=== PATIENT | female | born 1940 | race Caucasian/White ===

== ENCOUNTER 2017-12-25 17:06 | Emergency (ER) | payer MEDICARE, BC ==
[~2017-12-25] VITALS: Ht 170.2 cm; Wt 59.1 kg
[~2017-12-25 17:06] MED LIST: ASPI-1071 PO; ATOR80TA PO; CARV-50 PO; DONE5TAB7 PO; EZET10TA14 PO; FAMO20TA8 PO; FLUO20CA39 PO; GLIM4TAB79 PO; METF10002 PO; METF500T PO; MULT-1085 PO; MULT-271 PO
[2017-12-25 18:03] LABS: BASOPHILS # (AUTO) 0.1 X10'3 (0-0.2); BASOPHILS % (AUTO) 0.9 % (0-1); EOSINOPHILS # (AUTO) 0.4 X10'3 (0-0.9); EOSINOPHILS % (AUTO) 4.8 % (0-6); HEMATOCRIT 34.7 % (35.0-45.0); HEMOGLOBIN 11.5 g/dl (12.0-16.0); LYMPHOCYTES # (AUTO) 1.1 X10'3 (1.1-4.8); LYMPHOCYTES % (AUTO) 12.2 % (21-51); MEAN CORPUSCULAR HEMOGLOBIN 29.6 PG (27.0-31.0); MEAN CORPUSCULAR HGB CONC 33.2 % (33.0-36.5); MEAN CORPUSCULAR VOLUME 89.2 FL (78-98); MEAN PLATELET VOLUME 10.6 FL (7.4-10.4); MONOCYTES # (AUTO) 0.6 X10'3 (0-0.9); MONOCYTES % (AUTO) 6.7 % (2-12); NEUTROPHILS # (AUTO) 6.8 X10'3 (1.8-7.7); NEUTROPHILS % (AUTO) 75.4 % (42-75); PLATELET COUNT 223 X10'3 (140-440); RED BLOOD COUNT 3.89 X10'6 (4.20-5.60); WHITE BLOOD COUNT 9.1 X10'3 (4.5-11.0)
[2017-12-25 18:08] LABS: CLARITY,URINE CLOUDY (Clear); COLOR,URINE YELLOW (Yellow); GLUCOSE, URINE NEGATIVE (Neg); KETONES,URINE TRACE mg/dl (Neg); LEUKOCYTE ESTERASE ,URINE SMALL (Neg); NITRITES, URINE POSITIVE (Neg); OCCULT BLOOD,URINE MODERATE (Neg); PH,URINE 5.5 (4.8-8.0); PROTEIN,URINE NEGATIVE (Neg); UROBILINOGEN,URINE 0.2 E.U/dL (0.2-1.0)
[2017-12-25 18:11] LABS: INR 1.1 INR; PROTHROMBIN TIME 11.2 SECONDS (9.0-12.0)
[2017-12-25 18:12] LABS: UA COLLECTION TYPE STRAIGHT CATH
[2017-12-25 18:16] LABS: BACTERIA,URINE 4+ /HPF (Neg); MUCUS STRANDS NONE SEEN /LPF (Neg); RENAL CELLS, URINE FEW /HPF; SQUAMOUS EPITHELIAL CELL,UR FEW /LPF (FEW); TRANSITIONAL EPI CELLS,URINE FEW /HPF; WBC CLUMPS,URINE MANY /HPF (NEGATIVE); WBC,URINE 30-50 /HPF (0-4)
[2017-12-25 18:18] LABS: ALANINE AMINOTRANSFERASE 38 U/L (12-78); ALBUMIN 3.5 G/DL (3.4-5.0); ALKALINE PHOSPHATASE 57 IU/L (46-116); ANION GAP 10 (8-16); ASPARTATE AMINO TRANSFERASE 26 U/L (10-37); BILIRUBIN,TOTAL 0.4 MG/DL (0.1-1.0); BLOOD UREA NITROGEN 26 MG/DL (7-18); BUN/CREATININE RATIO 23.2 (6.6-38.0); CALCIUM 9.3 MG/DL (8.5-10.1); CHLORIDE 104 MMOL/L (99-107); CREATININE 1.12 MG/DL (0.40-0.90); GLUCOSE 200 MG/DL (70-104); SODIUM 142 MMOL/L (135-145); TOTAL CARBON DIOXIDE 27.7 MMOL/L (24-32); TOTAL PROTEIN 7.1 G/DL (6.4-8.2); eGFR 47 ML/MIN
[2017-12-25 18:20] LABS: POTASSIUM 4.2 MMOL/L (3.5-5.1)
[2017-12-25 18:34] LABS: PLATELET ESTIMATE NORMAL
[2017-12-25 18:35] LABS: ACANTHOCYTES 2+; ANISOCYTOSIS 1+; POIKILOCYTOSIS 1+
[2017-12-25] MEDS ORDERED: cephalexin 250mg capsule PO ONE (18:35)
[2017-12-25] MEDS ORDERED: levoFLOXACIN 250mg tablet PO ONE (18:45)
[2017-12-25] MEDS ORDERED: LEVO500T2 PO (18:58)
[2017-12-25] MEDS ORDERED: LORazepam 2 mg/ml vial IV ONE (19:00)
[2017-12-25 19:12] VITALS: BP 138/68
== END 2017-12-25 19:42 | disposition home or self-care (01) ==
LOC: ER 17:06
DX: F03.90 Unspecified dementia, unspecified severity, without behavioral disturbance, psychotic disturbance, mood disturbance, and anxiety (principal); G93.40 Encephalopathy, unspecified; N39.0 Urinary tract infection, site not specified; M16.0 Bilateral primary osteoarthritis of hip; I48.91 Unspecified atrial fibrillation; E11.9 Type 2 diabetes mellitus without complications; I10 Essential (primary) hypertension; Z90.49 Acquired absence of other specified parts of digestive tract; Z88.0 Allergy status to penicillin; Z88.2 Allergy status to sulfonamides; Z88.8 Allergy status to other drugs, medicaments and biological substances; Z79.84 Long term (current) use of oral hypoglycemic drugs; Z79.82 Long term (current) use of aspirin; Z79.899 Other long term (current) drug therapy; Z60.2 Problems related to living alone
CPT/HCPCS: 36415; 70450; 72170; 72192; 80053; 81001; 82948; 85025; 85610; 87077; 87088; 87186; 93005; 99285

== ENCOUNTER 2018-01-03 21:08 | Emergency (ER) | payer MEDICARE, BC ==
[~2018-01-03] VITALS: Ht 160 cm; Wt 72.0 kg
[2018-01-03 22:02] VITALS: BP 116/63
[2018-01-03 22:03] LABS: BASOPHILS % (AUTO) 0.2 % (0-1); EOSINOPHILS # (AUTO) 0.8 X10'3 (0-0.9); EOSINOPHILS % (AUTO) 7.2 % (0-6); HEMATOCRIT 34.5 % (35.0-45.0); HEMOGLOBIN 11.5 g/dl (12.0-16.0); MEAN CORPUSCULAR HEMOGLOBIN 29.6 PG (27.0-31.0); MEAN CORPUSCULAR HGB CONC 33.3 % (33.0-36.5); MEAN CORPUSCULAR VOLUME 88.9 FL (78-98); MEAN PLATELET VOLUME 10.4 FL (7.4-10.4); MONOCYTES # (AUTO) 0.9 X10'3 (0-0.9); MONOCYTES % (AUTO) 7.8 % (2-12); NEUTROPHILS # (AUTO) 7.3 X10'3 (1.8-7.7); NEUTROPHILS % (AUTO) 66.8 % (42-75); PLATELET COUNT 251 X10'3 (140-440); RED BLOOD COUNT 3.88 X10'6 (4.20-5.60); RED CELL DISTRIBUTION WIDTH 16.1 % (11.5-14.5); WHITE BLOOD COUNT 10.9 X10'3 (4.5-11.0)
[2018-01-03 22:20] LABS: ALANINE AMINOTRANSFERASE 22 U/L (12-78); ALBUMIN 3.1 G/DL (3.4-5.0); ALBUMIN/GLOBULIN RATIO 0.9 (1.1-1.5); ALKALINE PHOSPHATASE 62 IU/L (46-116); ANION GAP 12 (8-16); ASPARTATE AMINO TRANSFERASE 16 U/L (10-37); BILIRUBIN,TOTAL 0.5 MG/DL (0.1-1.0); BLOOD UREA NITROGEN 20 MG/DL (7-18); BUN/CREATININE RATIO 18.2 (6.6-38.0); CALCIUM 9.3 MG/DL (8.5-10.1); CHLORIDE 103 MMOL/L (99-107); GLUCOSE 214 MG/DL (70-104); POTASSIUM 4.6 MMOL/L (3.5-5.1); SODIUM 141 MMOL/L (135-145); TOTAL CARBON DIOXIDE 25.8 MMOL/L (24-32); TOTAL PROTEIN 6.4 G/DL (6.4-8.2); eGFR 48 ML/MIN
[2018-01-03 22:45] LABS: ACANTHOCYTES 2+; ANISOCYTOSIS 1+; PLATELET ESTIMATE NORMAL; POIKILOCYTOSIS 2+
[2018-01-03 22:46] LABS: ELLIPTOCYTES 1+
[2018-01-03] MEDS ORDERED: normal saline 1000ML IV soln IVB ONE (23:05)
[2018-01-03 23:07] LABS: CLARITY,URINE Clear (Clear); COLOR,URINE Yellow (Yellow); GLUCOSE, URINE Negative (Neg); KETONES,URINE Negative (Neg); LEUKOCYTE ESTERASE ,URINE Moderate (Neg); NITRITES, URINE Negative (Neg); OCCULT BLOOD,URINE Negative (Neg); PROTEIN,URINE Negative (Neg); UROBILINOGEN,URINE 0.2 E.U/dL (0.2-1.0)
[2018-01-03 23:10] LABS: UA COLLECTION TYPE CLN CATCH MIDSTREAM
[2018-01-03 23:13] LABS: BACTERIA,URINE FEW /HPF (Neg); MUCUS STRANDS FEW /LPF (Neg); RBC,URINE NONE SEEN /HPF (0-2); RENAL CELLS, URINE FEW /HPF; SQUAMOUS EPITHELIAL CELL,UR FEW /LPF (FEW); TRANSITIONAL EPI CELLS,URINE FEW /HPF; WBC CLUMPS,URINE FEW /HPF (NEGATIVE)
[2018-01-03 23:20] LABS: URINE AMPHETAMINE SCREEN NEGATIVE (Neg); URINE BARBITUATE SCREEN NEGATIVE (Neg); URINE BENZODIAZEPINES SCREEN NEGATIVE (Neg); URINE CANNABINOID SCREEN NEGATIVE (Neg); URINE COCAINE SCREEN NEGATIVE (Neg); URINE METHADONE SCREEN NEGATIVE (Neg); URINE OPIATE SCREEN POSITIVE (Neg); URINE PHENCYCLIDINE SCREEN NEGATIVE (Neg)
[2018-01-04] MEDS ORDERED: NITR100C6 PO (00:27)
== END 2018-01-04 01:29 | disposition home or self-care (01) ==
LOC: ER 21:09
DX: E11.649 Type 2 diabetes mellitus with hypoglycemia without coma (principal); N39.0 Urinary tract infection, site not specified; I48.91 Unspecified atrial fibrillation; I10 Essential (primary) hypertension; Z90.49 Acquired absence of other specified parts of digestive tract; Z88.0 Allergy status to penicillin; Z88.2 Allergy status to sulfonamides; Z88.8 Allergy status to other drugs, medicaments and biological substances; Z79.82 Long term (current) use of aspirin; Z79.84 Long term (current) use of oral hypoglycemic drugs; Z79.899 Other long term (current) drug therapy
CPT/HCPCS: 36415; 70450; 71045; 74176; 80053; 80305; 81001; 82948; 83605; 84145; 84484; 85025; 87040; 87088; 93005; 99285; J7030; 96360

== ENCOUNTER 2018-05-18 04:20 | Inpatient (IN) | payer MEDICARE, BC ==
[2018-05-18] VITALS (15 sets, daily range): BP systolic 90–141; BP diastolic 46–69
[~2018-05-18] VITALS: Ht 172.7 cm; Wt 60.5 kg
[~2018-05-18 04:20] MED LIST changes: -METF10002 PO; +METF10004 PO; +NITR100C6 PO
[2018-05-18] MEDS ORDERED: morphine 4 MG/ML inj SYRINge IV ONE (04:35)
[2018-05-18] MEDS ORDERED: ondansetron/PF 4mg/2ml inj IV ONE (04:35)
[2018-05-18] MEDS ORDERED: dextrose 50%-water 50ml dispensing syringe IV ONE ×2 (04:48→04:55)
[2018-05-18 04:53] LABS: BASOPHILS # (AUTO) 0.1 X10'3 (0-0.2); BASOPHILS % (AUTO) 0.5 % (0-1); EOSINOPHILS # (AUTO) 1.1 X10'3 (0-0.9); EOSINOPHILS % (AUTO) 10.1 % (0-6); HEMATOCRIT 35.1 % (35.0-45.0); HEMOGLOBIN 11.6 g/dl (12.0-16.0); LYMPHOCYTES # (AUTO) 2.2 X10'3 (1.1-4.8); LYMPHOCYTES % (AUTO) 19.8 % (21-51); MEAN CORPUSCULAR HEMOGLOBIN 29.7 PG (27.0-31.0); MEAN CORPUSCULAR VOLUME 89.9 FL (78-98); MEAN PLATELET VOLUME 10.5 FL (7.4-10.4); MONOCYTES # (AUTO) 0.9 X10'3 (0-0.9); MONOCYTES % (AUTO) 8.4 % (2-12); NEUTROPHILS # (AUTO) 6.9 X10'3 (1.8-7.7); NEUTROPHILS % (AUTO) 61.2 % (42-75); PLATELET COUNT 247 X10'3 (140-440); RED CELL DISTRIBUTION WIDTH 16.9 % (11.5-14.5); WHITE BLOOD COUNT 11.2 X10'3 (4.5-11.0)
[2018-05-18 05:04] LABS: PARTIAL THROMBOPLASTIN TIME 23 SECONDS (22-32); PLATELET ESTIMATE NORMAL; PROTHROMBIN TIME 10.8 SECONDS (9.0-12.0)
[2018-05-18 05:05] LABS: LARGE PLATELETS FEW
[2018-05-18] MEDS ORDERED: DIVA125T31 PO ×2 (05:07)
[2018-05-18 05:08] LABS: ALANINE AMINOTRANSFERASE 48 U/L (12-78); ALBUMIN 3.4 G/DL (3.4-5.0); ALBUMIN/GLOBULIN RATIO 0.9 (1.1-1.5); ALKALINE PHOSPHATASE 58 IU/L (46-116); ANION GAP 13 (8-16); ASPARTATE AMINO TRANSFERASE 37 U/L (10-37); BILIRUBIN,TOTAL 0.3 MG/DL (0.1-1.0); BLOOD UREA NITROGEN 25 MG/DL (7-18); BUN/CREATININE RATIO 21.9 (6.6-38.0); CALCIUM 8.9 MG/DL (8.5-10.1); CHLORIDE 103 MMOL/L (99-107); CREATININE 1.14 MG/DL (0.40-0.90); GLUCOSE 84 MG/DL (70-104); SODIUM 141 MMOL/L (135-145); TOTAL PROTEIN 7.2 G/DL (6.4-8.2); eGFR 46 ML/MIN
[2018-05-18 05:09] LABS: CREATINE KINASE 84 U/L (26-192); MAGNESIUM 1.4 MG/DL (1.5-2.4)
[2018-05-18] MEDS ORDERED: METF500T7 PO (05:18)
[2018-05-18] MEDS ORDERED: QUET25TA PO ×2 (05:18→06:15)
[2018-05-18] MEDS ORDERED: INSU100V9 SQ (05:18)
[2018-05-18] MEDS ORDERED: BUSP5TAB3 PO (05:18)
[2018-05-18 05:24] LABS: CLARITY,URINE SLIGHTLY CLOUDY (Clear); COLOR,URINE YELLOW (Yellow); GLUCOSE, URINE 100 mg/dl (Neg); KETONES,URINE TRACE mg/dl (Neg); LEUKOCYTE ESTERASE ,URINE TRACE (Neg); NITRITES, URINE NEGATIVE (Neg); OCCULT BLOOD,URINE NEGATIVE (Neg); PROTEIN,URINE NEGATIVE (Neg); UROBILINOGEN,URINE 0.2 E.U/dL (0.2-1.0)
[2018-05-18 05:34] LABS: UA COLLECTION TYPE FOLEY CATH
[2018-05-18 05:35] LABS: BACTERIA,URINE 4+ /HPF (Neg); MUCUS STRANDS NONE SEEN /LPF (Neg); RBC,URINE NONE SEEN /HPF (0-2); SQUAMOUS EPITHELIAL CELL,UR FEW /LPF (FEW); TRANSITIONAL EPI CELLS,URINE FEW /HPF
[2018-05-18] MEDS ORDERED: mag hydrox/Alum hydrox/simeth 30ml oral suspension PO PRN (05:35)
[2018-05-18] MEDS ORDERED: ondansetron/PF 4mg/2ml inj IV PRN ×3 (05:35→17:00)
[2018-05-18] MEDS ORDERED: acetaminophen 325mg tablet PO PRN (05:35)
[2018-05-18] MEDS ORDERED: magnesium hydroxide 30ml (MOM) UD suspension PO PRN ×2 (05:35→18:15)
[2018-05-18] MEDS ORDERED: dextrose 5%-1/2 normal saline 1,000 ML IV SCH (05:35)
[2018-05-18] MEDS ORDERED: MESSAGE TO PHARMACY PO ONE (05:40)
[2018-05-18] MEDS ORDERED: dextrose ORAL solution 15 GM/59 ML bottle PO PRN ×2 (05:40)
[2018-05-18] MEDS ORDERED: glucagon, human recombinant 1mg kit SUBCUT PRN (05:40)
[2018-05-18] MEDS ORDERED: dextrose 50%-water 50ml dispensing syringe IV PRN ×2 (05:40)
[2018-05-18] MEDS: morphine 2 MG/ML inj. syringe IV PRN (05:53)
[2018-05-18] MEDS ORDERED: MAGN400O6 PO (06:15)
[2018-05-18] MEDS ORDERED: LOPE2CAP PO (06:15)
[2018-05-18] MEDS ORDERED: CALC500T99 PO (06:15)
[2018-05-18] MEDS ORDERED: GLUC1KIT2 IM (06:15)
[2018-05-18] MEDS ORDERED: PSYL540P PO (06:15)
[2018-05-18] MEDS ORDERED: DULR RC (06:15)
[2018-05-18] MEDS ORDERED: HALOPERIDOL TOP (06:15)
[2018-05-18] MEDS ORDERED: EUCA1LOZ37 PO (06:15)
[2018-05-18] MEDS ORDERED: METH113C20 TOP (06:15)
[2018-05-18] MEDS ORDERED: ACET325T55 PO (06:15)
[2018-05-18] MEDS ORDERED: GUAI100L97 PO (06:15)
[2018-05-18] MEDS ORDERED: GLYC-10 RC (06:15)
[2018-05-18] MEDS ORDERED: BISM262O PO (06:15)
[2018-05-18] MEDS ORDERED: [UNRECOGNIZED DRUG - CODE] (06:15)
[2018-05-18] MEDS ORDERED: EUCA50OI5 TP (06:15)
[2018-05-18] MEDS ORDERED: morphine 2 MG/ML inj. syringe IV ONE (06:35)
[2018-05-18] MEDS: heparin, porcine 5000 units/ml vial SQ SCH ×3 (08:00→20:40)
[2018-05-18 08:19] LABS: HEMOGLOBIN A1C 7.2 % (4.5-6.2)
[2018-05-18] MEDS: docusate sod 100mg capsule PO SCH ×2 (08:52→20:00)
[2018-05-18] MEDS: FLUoxetine 20mg capsule PO SCH (08:52)
[2018-05-18] MEDS: carVEDilol 12.5mg tablet PO SCH ×3 (08:52→20:00)
[2018-05-18] MEDS: famotidine 20mg tablet PO SCH (08:52)
[2018-05-18] MEDS: divalproex sod 125mg tablet.DR PO SCH (09:30)
[2018-05-18] MEDS ORDERED: DIVA-74 PO (14:57)
[2018-05-18] MEDS ORDERED: ringers solution, lacted 1,000 ML IV SCH ×2 (15:59→16:57)
[2018-05-18] MEDS ORDERED: morphine 4 MG/ML inj SYRINge IV PRN ×4 (16:00→17:00)
[2018-05-18] MEDS ORDERED: labetalol 5mg/ml 20ml inj. IV PRN (16:00)
[2018-05-18] MEDS ORDERED: enalaprilat dihydrate 2.5mg/2ml vial IV PRN ×2 (16:00→17:00)
[2018-05-18] MEDS ORDERED: fentaNYL/PF 50MCG/1 ML 2ML syringe IV PRN ×4 (16:00→17:00)
[2018-05-18] MEDS ORDERED: hydrALAZINE 20mg/ml inj. IV PRN (17:00)
[2018-05-18] MEDS ORDERED: sevoflurane 250ml liquid IH ONE (17:02)
[2018-05-18] MEDS ORDERED: midazolam 2 mg/2 ml injection ONE ×2 (17:15)
[2018-05-18] MEDS ORDERED: fentaNYL/PF 50MCG/1 ML 2ML syringe ONE ×2 (17:15→17:46)
[2018-05-18] MEDS ORDERED: etomidate 2mg/ml inj. ONE (17:16)
[2018-05-18] MEDS ORDERED: diphenhydrAMINE 25mg capsule PO PRN ×2 (18:15)
[2018-05-18] MEDS ORDERED: bisacodyl 10mg suppository rectal RC PRN (18:15)
[2018-05-18] MEDS ORDERED: insulin Lispro (HumaLOG) vial - multi-dose SQ ONE (18:35)
[2018-05-18] MEDS: clindamycin 600mg/D5W 50ml 50 ML IV SCH (20:39)
[2018-05-18] MEDS: divalproex sodium 250mg tablet PO SCH (20:40)
[2018-05-18] MEDS: sennosides 8.6mg tablet PO SCH (20:40)
[2018-05-18] MEDS ORDERED: insulin glargine (Lantus) pen - multi-dose SQ ONE (22:25)
[2018-05-18] MEDS: normal saline 1000ml 1,000 ML IV SCH (23:05)
[2018-05-19 02:00] VITALS: BP 110/49
[2018-05-19] MEDS: clindamycin 600mg/D5W 50ml 50 ML IV SCH ×3 (02:26→13:20)
[2018-05-19] MEDS: morphine 2 MG/ML inj. syringe IV PRN (02:34)
[2018-05-19 02:50] VITALS: BP 90/49
[2018-05-19] MEDS: acetaminophen 325mg tablet PO PRN (05:23)
[2018-05-19 07:29] LABS: BASOPHILS % (AUTO) 0.4 % (0-1); EOSINOPHILS # (AUTO) 0.2 X10'3 (0-0.9); EOSINOPHILS % (AUTO) 1.7 % (0-6); HEMATOCRIT 27.1 % (35.0-45.0); LYMPHOCYTES # (AUTO) 1.1 X10'3 (1.1-4.8); LYMPHOCYTES % (AUTO) 10.7 % (21-51); MEAN CORPUSCULAR HEMOGLOBIN 30.2 PG (27.0-31.0); MEAN CORPUSCULAR HGB CONC 33.3 % (33.0-36.5); MEAN CORPUSCULAR VOLUME 90.7 FL (78-98); MEAN PLATELET VOLUME 11.7 FL (7.4-10.4); MONOCYTES # (AUTO) 1.1 X10'3 (0-0.9); MONOCYTES % (AUTO) 11.5 % (2-12); NEUTROPHILS # (AUTO) 7.5 X10'3 (1.8-7.7); NEUTROPHILS % (AUTO) 75.7 % (42-75); PLATELET COUNT 175 X10'3 (140-440); RED BLOOD COUNT 2.99 X10'6 (4.20-5.60); RED CELL DISTRIBUTION WIDTH 16.2 % (11.5-14.5)
[2018-05-19] MEDS: heparin, porcine 5000 units/ml vial SQ SCH ×2 (07:59→19:09)
[2018-05-19] MEDS: docusate sod 100mg capsule PO SCH ×2 (08:00→19:09)
[2018-05-19] MEDS: famotidine 20mg tablet PO SCH (08:00)
[2018-05-19] MEDS: FLUoxetine 20mg capsule PO SCH (08:00)
[2018-05-19] MEDS: carVEDilol 12.5mg tablet PO SCH ×2 (08:00→19:09)
[2018-05-19] MEDS: divalproex sod 125mg tablet.DR PO SCH (08:06)
[2018-05-19 08:24] LABS: ALANINE AMINOTRANSFERASE 47 U/L (12-78); ALKALINE PHOSPHATASE 48 IU/L (46-116); ANION GAP 10 (8-16); ASPARTATE AMINO TRANSFERASE 38 U/L (10-37); BILIRUBIN,TOTAL 0.5 MG/DL (0.1-1.0); BLOOD UREA NITROGEN 21 MG/DL (7-18); BUN/CREATININE RATIO 21.6 (6.6-38.0); CALCIUM 7.7 MG/DL (8.5-10.1); CHLORIDE 105 MMOL/L (99-107); CREATININE 0.97 MG/DL (0.40-0.90); GLUCOSE 133 MG/DL (70-104); POTASSIUM 3.5 MMOL/L (3.5-5.1); SODIUM 140 MMOL/L (135-145); TOTAL CARBON DIOXIDE 24.6 MMOL/L (24-32); eGFR 55 ML/MIN
[2018-05-19 09:52] LABS: PLATELET ESTIMATE NORMAL
[2018-05-19 09:53] LABS: ANISOCYTOSIS 1+
[2018-05-19 09:54] LABS: ACANTHOCYTES 1+; SCHISTOCYTES FEW
[2018-05-19 10:00] VITALS: BP 117/55
[2018-05-19] MEDS: insulin Lispro (HumaLOG) vial - multi-dose SQ SCH ×3 (10:38→19:07)
[2018-05-19] MEDS: normal saline 1000ml 1,000 ML IV SCH (13:38)
[2018-05-19 14:00] VITALS: BP 106/53
[2018-05-19] MEDS ORDERED: LORazepam 2 mg/ml vial IV PRN (15:20)
[2018-05-19 18:00] VITALS: BP 120/58
[2018-05-19] MEDS: divalproex sodium 250mg tablet PO SCH (19:50)
[2018-05-19] MEDS: HYDROcodone/acetaminophen 5mg/325mg tablet PO PRN (19:50)
[2018-05-19] MEDS: sennosides 8.6mg tablet PO SCH (19:51)
[2018-05-19] MEDS ORDERED: insulin glargine (Lantus) pen - multi-dose SQ SCH (21:00)
[2018-05-19] MEDS: insulin glargine (Lantus) pen - multi-dose SQ SCH (21:52)
[2018-05-19 22:00] VITALS: BP 112/59
[2018-05-20] VITALS (12 sets, daily range): BP systolic 116–148; BP diastolic 66–88
[2018-05-20] MEDS: HYDROcodone/acetaminophen 5mg/325mg tablet PO PRN ×3 (02:37→17:11)
[2018-05-20 07:04] LABS: BASOPHILS % (AUTO) 0.4 % (0-1); EOSINOPHILS # (AUTO) 0.2 X10'3 (0-0.9); EOSINOPHILS % (AUTO) 2.1 % (0-6); HEMOGLOBIN 7.3 g/dl (12.0-16.0); LYMPHOCYTES % (AUTO) 9.9 % (21-51); MEAN CORPUSCULAR HEMOGLOBIN 30.2 PG (27.0-31.0); MEAN CORPUSCULAR HGB CONC 33.8 % (33.0-36.5); MEAN CORPUSCULAR VOLUME 89.2 FL (78-98); MEAN PLATELET VOLUME 10.9 FL (7.4-10.4); MONOCYTES # (AUTO) 1.3 X10'3 (0-0.9); MONOCYTES % (AUTO) 12.4 % (2-12); NEUTROPHILS # (AUTO) 7.7 X10'3 (1.8-7.7); NEUTROPHILS % (AUTO) 75.2 % (42-75); PLATELET COUNT 145 X10'3 (140-440); RED BLOOD COUNT 2.43 X10'6 (4.20-5.60); RED CELL DISTRIBUTION WIDTH 16.5 % (11.5-14.5); WHITE BLOOD COUNT 10.3 X10'3 (4.5-11.0)
[2018-05-20 07:17] LABS: HEMATOCRIT 21.7 % (35.0-45.0)
[2018-05-20 07:25] LABS: ALANINE AMINOTRANSFERASE 40 U/L (12-78); ALBUMIN 2.4 G/DL (3.4-5.0); ALBUMIN/GLOBULIN RATIO 0.8 (1.1-1.5); ALKALINE PHOSPHATASE 43 IU/L (46-116); ANION GAP 11 (8-16); ASPARTATE AMINO TRANSFERASE 32 U/L (10-37); BILIRUBIN,TOTAL 0.5 MG/DL (0.1-1.0); BLOOD UREA NITROGEN 22 MG/DL (7-18); BUN/CREATININE RATIO 21.6 (6.6-38.0); CALCIUM 7.6 MG/DL (8.5-10.1); CHLORIDE 104 MMOL/L (99-107); CREATININE 1.02 MG/DL (0.40-0.90); GLUCOSE 161 MG/DL (70-104); POTASSIUM 3.4 MMOL/L (3.5-5.1); SODIUM 137 MMOL/L (135-145); TOTAL CARBON DIOXIDE 21.9 MMOL/L (24-32); TOTAL PROTEIN 5.4 G/DL (6.4-8.2); eGFR 52 ML/MIN
[2018-05-20] MEDS: FLUoxetine 20mg capsule PO SCH (07:32)
[2018-05-20] MEDS: divalproex sod 125mg tablet.DR PO SCH (07:32)
[2018-05-20] MEDS: famotidine 20mg tablet PO SCH (07:32)
[2018-05-20] MEDS: docusate sod 100mg capsule PO SCH ×2 (07:32→21:12)
[2018-05-20] MEDS: heparin, porcine 5000 units/ml vial SQ SCH ×2 (07:32→21:13)
[2018-05-20] MEDS: normal saline 1000ml 1,000 ML IV SCH ×2 (07:32→21:42)
[2018-05-20] MEDS: carVEDilol 12.5mg tablet PO SCH ×2 (07:32→21:12)
[2018-05-20 07:49] LABS: LARGE PLATELETS FEW; PLATELET ESTIMATE NORMAL
[2018-05-20] MEDS: insulin Lispro (HumaLOG) vial - multi-dose SQ SCH ×3 (09:26→19:26)
[2018-05-20 10:21] LABS: HEMATOCRIT 23.1 % (35.0-45.0); HEMOGLOBIN 7.8 g/dl (12.0-16.0); MEAN CORPUSCULAR HEMOGLOBIN 30.1 PG (27.0-31.0); MEAN CORPUSCULAR HGB CONC 33.5 % (33.0-36.5); MEAN CORPUSCULAR VOLUME 89.9 FL (78-98); MEAN PLATELET VOLUME 11.3 FL (7.4-10.4); PLATELET COUNT 152 X10'3 (140-440); RED BLOOD COUNT 2.58 X10'6 (4.20-5.60); RED CELL DISTRIBUTION WIDTH 16.7 % (11.5-14.5); WHITE BLOOD COUNT 9.8 X10'3 (4.5-11.0)
[2018-05-20] MEDS ORDERED: insulin glargine (Lantus) pen - multi-dose SQ SCH (21:00)
[2018-05-20] MEDS: sennosides 8.6mg tablet PO SCH (21:00)
[2018-05-20] MEDS: divalproex sodium 250mg tablet PO SCH (21:30)
[2018-05-20] MEDS: insulin glargine (Lantus) pen - multi-dose SQ SCH (21:36)
[2018-05-21] MEDS: acetaminophen 325mg tablet PO PRN (05:34)
[2018-05-21 06:06] LABS: BASOPHILS % (AUTO) 0.4 % (0-1); EOSINOPHILS # (AUTO) 0.2 X10'3 (0-0.9); EOSINOPHILS % (AUTO) 2.3 % (0-6); HEMOGLOBIN 10.9 g/dl (12.0-16.0); LYMPHOCYTES % (AUTO) 9.7 % (21-51); MEAN CORPUSCULAR HGB CONC 34.1 % (33.0-36.5); MEAN CORPUSCULAR VOLUME 87.9 FL (78-98); MEAN PLATELET VOLUME 10.7 FL (7.4-10.4); MONOCYTES # (AUTO) 1.2 X10'3 (0-0.9); MONOCYTES % (AUTO) 11.9 % (2-12); NEUTROPHILS # (AUTO) 7.7 X10'3 (1.8-7.7); NEUTROPHILS % (AUTO) 75.7 % (42-75); PLATELET COUNT 160 X10'3 (140-440); RED BLOOD COUNT 3.64 X10'6 (4.20-5.60); RED CELL DISTRIBUTION WIDTH 17.4 % (11.5-14.5); WHITE BLOOD COUNT 10.2 X10'3 (4.5-11.0)
[2018-05-21 06:10] LABS: ALANINE AMINOTRANSFERASE 41 U/L (12-78); ALBUMIN 2.4 G/DL (3.4-5.0); ALBUMIN/GLOBULIN RATIO 0.7 (1.1-1.5); ALKALINE PHOSPHATASE 54 IU/L (46-116); ANION GAP 9 (8-16); ASPARTATE AMINO TRANSFERASE 39 U/L (10-37); BILIRUBIN,TOTAL 0.9 MG/DL (0.1-1.0); BLOOD UREA NITROGEN 18 MG/DL (7-18); BUN/CREATININE RATIO 19.8 (6.6-38.0); CALCIUM 8.1 MG/DL (8.5-10.1); CHLORIDE 105 MMOL/L (99-107); CREATININE 0.91 MG/DL (0.40-0.90); GLUCOSE 137 MG/DL (70-104); POTASSIUM 3.7 MMOL/L (3.5-5.1); SODIUM 137 MMOL/L (135-145); TOTAL CARBON DIOXIDE 22.7 MMOL/L (24-32); TOTAL PROTEIN 5.9 G/DL (6.4-8.2); eGFR 60 ML/MIN
[2018-05-21 07:47] VITALS: BP 133/75
[2018-05-21] MEDS: FLUoxetine 20mg capsule PO SCH (08:11)
[2018-05-21] MEDS: famotidine 20mg tablet PO SCH (08:11)
[2018-05-21] MEDS: carVEDilol 12.5mg tablet PO SCH (08:11)
[2018-05-21] MEDS: docusate sod 100mg capsule PO SCH (08:11)
[2018-05-21] MEDS: divalproex sod 125mg tablet.DR PO SCH (08:11)
[2018-05-21] MEDS: heparin, porcine 5000 units/ml vial SQ SCH (08:12)
[2018-05-21 10:28] VITALS: BP 133/73
[2018-05-21] MEDS: levoFLOXACIN 250mg tablet PO SCH (11:44)
[2018-05-21] MEDS: HYDROcodone/acetaminophen 5mg/325mg tablet PO PRN (13:13)
== END 2018-05-21 13:45 | DRG 480 ==
LOC: ER 04:20 → ED HOLD 05:35 → ORTHO 4S 07:55
PROVIDERS: ADMIT Internal Medicine; ATTEND Family Medicine
PROC: 0QS706Z Reposition Left Upper Femur with Intramedullary Internal Fixation Device, Open Approach (ICD-10-PCS; principal; 2018-05-18 17:02)
PROC: 30233N1 Transfusion of Nonautologous Red Blood Cells into Peripheral Vein, Percutaneous Approach (ICD-10-PCS; 2018-05-20)
DX: S72.145A Nondisplaced intertrochanteric fracture of left femur, initial encounter for closed fracture (principal); E43 Unspecified severe protein-calorie malnutrition; N39.0 Urinary tract infection, site not specified; D50.0 Iron deficiency anemia secondary to blood loss (chronic); E11.22 Type 2 diabetes mellitus with diabetic chronic kidney disease; E78.5 Hyperlipidemia, unspecified; E83.51 Hypocalcemia; E87.6 Hypokalemia; F02.80 Dementia in other diseases classified elsewhere, unspecified severity, without behavioral disturbance, psychotic disturbance, mood disturbance, and anxiety; G30.9 Alzheimer's disease, unspecified; I12.9 Hypertensive chronic kidney disease with stage 1 through stage 4 chronic kidney disease, or unspecified chronic kidney disease; I48.91 Unspecified atrial fibrillation; M19.90 Unspecified osteoarthritis, unspecified site; N18.9 Chronic kidney disease, unspecified; Z66 Do not resuscitate; W18.39XA Other fall on same level, initial encounter; Z87.891 Personal history of nicotine dependence; Z90.49 Acquired absence of other specified parts of digestive tract; Z99.3 Dependence on wheelchair; Z88.1 Allergy status to other antibiotic agents; Z88.0 Allergy status to penicillin; Z88.2 Allergy status to sulfonamides; Z88.8 Allergy status to other drugs, medicaments and biological substances; Y93.89 Activity, other specified; Y92.89 Other specified places as the place of occurrence of the external cause; Y99.8 Other external cause status
CPT/HCPCS: 27187; 36415; 71045; 72192; 73501; 73502; 76000; 80053; 81001; 82550; 82948; 83036; 83735; 84484; 85025; 85027; 85610; 85730; 86885; 86900; 86901; 86920; 87070; 87077; 87088; 87186; 93005; 96374; 96375; 97162; 97530; 99285; A4315; A6255; A7000; J1644; J1815; J2250; J2270; J2405; J3010; J3490; J7030; J7120; P9016

== ENCOUNTER 2019-06-04 14:08 | Emergency (ER) | payer MEDICARE, BC ==
[~2019-06-04] VITALS: Ht 165.1 cm; Wt 61.4 kg
[~2019-06-04 14:08] MED LIST changes: +ACET325T55 PO; +BUSP5TAB3 PO; +DIVA-74 PO; +DIVA125T31 PO; -DONE5TAB7 PO; -EZET10TA14 PO; +EZET10TA21 PO; -GLIM4TAB79 PO; +INSU100V9 SQ; -METF10004 PO; -METF500T PO; +METF500T20 PO; -MULT-271 PO; -NITR100C6 PO; +QUET25TA PO
[2019-06-04 15:28] LABS: CLARITY,URINE SLIGHTLY CLOUDY (Clear); COLOR,URINE YELLOW (Yellow); GLUCOSE, URINE NEGATIVE (Neg); KETONES,URINE TRACE mg/dl (Neg); LEUKOCYTE ESTERASE ,URINE NEGATIVE (Neg); NITRITES, URINE NEGATIVE (Neg); OCCULT BLOOD,URINE MODERATE (Neg); PH,URINE 5.5 (4.8-8.0); PROTEIN,URINE NEGATIVE (Neg); UROBILINOGEN,URINE 0.2 E.U/dL (0.2-1.0)
[2019-06-04 15:29] LABS: UA COLLECTION TYPE STRAIGHT CATH
[2019-06-04 15:36] LABS: SQUAMOUS EPITHELIAL CELL,UR MODERATE /LPF (FEW)
[2019-06-04 15:37] LABS: MUCUS STRANDS NONE SEEN /LPF (Neg); RBC,URINE 50-100 /HPF (0-2); WBC,URINE 0-4 /HPF (0-4)
[2019-06-04 15:39] LABS: BACTERIA,URINE 4+ /HPF (Neg)
[2019-06-04] MEDS ORDERED: haloperidol lactate 5mg/ml inj IM ONE (16:45)
--- NOTE | 2019-06-04 17:18 | NUR ---
SPOKE TO LEXI FROM [facility] TO GIVE REPORT.
[2019-06-04 17:40] VITALS: BP 128/65
== END 2019-06-04 17:41 | disposition home or self-care (01) ==
LOC: ER 14:09
DX: M25.561 Pain in right knee (principal); M25.562 Pain in left knee; F03.90 Unspecified dementia, unspecified severity, without behavioral disturbance, psychotic disturbance, mood disturbance, and anxiety; I48.91 Unspecified atrial fibrillation; I10 Essential (primary) hypertension; E11.9 Type 2 diabetes mellitus without complications; Z88.0 Allergy status to penicillin; Z88.2 Allergy status to sulfonamides; Z88.8 Allergy status to other drugs, medicaments and biological substances; Z79.82 Long term (current) use of aspirin; Z79.84 Long term (current) use of oral hypoglycemic drugs; Z79.4 Long term (current) use of insulin; Z79.899 Other long term (current) drug therapy; Z90.49 Acquired absence of other specified parts of digestive tract; Z98.890 Other specified postprocedural states; W18.39XA Other fall on same level, initial encounter; Y93.89 Activity, other specified; Y92.89 Other specified places as the place of occurrence of the external cause; Y99.8 Other external cause status
CPT/HCPCS: 72170; 81001; 87088; 96372; 99284; J1630; P9612

== ENCOUNTER 2019-11-27 05:18 | Emergency (ER) | payer MEDICARE, BC ==
[~2019-11-27] VITALS: Ht 160 cm; Wt 63.6 kg
[~2019-11-27 05:18] MED LIST changes: -EZET10TA21 PO; +EZET10TA6 PO
[2019-11-27 05:48] LABS: BASOPHILS # (AUTO) 0.1 X10'3 (0-0.2); BASOPHILS % (AUTO) 0.8 % (0-1); EOSINOPHILS # (AUTO) 1.1 X10'3 (0-0.9); EOSINOPHILS % (AUTO) 10.6 % (0-6); HEMATOCRIT 30.6 % (35.0-45.0); HEMOGLOBIN 10.3 g/dl (12.0-16.0); LYMPHOCYTES # (AUTO) 1.5 X10'3 (1.1-4.8); LYMPHOCYTES % (AUTO) 14.7 % (21-51); MEAN CORPUSCULAR HGB CONC 33.8 g/dL (33.0-36.5); MEAN CORPUSCULAR VOLUME 91.8 FL (78-98); MEAN PLATELET VOLUME 9.8 FL (7.4-10.4); MONOCYTES # (AUTO) 0.9 X10'3 (0-0.9); MONOCYTES % (AUTO) 8.5 % (2-12); NEUTROPHILS # (AUTO) 6.6 X10'3 (1.8-7.7); NEUTROPHILS % (AUTO) 65.4 % (42-75); PLATELET COUNT 242 X10'3 (140-440); RED BLOOD COUNT 3.33 X10'6 (4.20-5.60); RED CELL DISTRIBUTION WIDTH 15.2 % (11.5-14.5); WHITE BLOOD COUNT 10.1 X10'3 (4.5-11.0)
[2019-11-27 06:01] LABS: PARTIAL THROMBOPLASTIN TIME 24 SECONDS (22-32)
[2019-11-27 06:08] LABS: ALANINE AMINOTRANSFERASE 10 U/L (12-78); ALBUMIN 2.9 G/DL (3.4-5.0); ALBUMIN/GLOBULIN RATIO 0.8 (1.1-1.5); ALKALINE PHOSPHATASE 52 IU/L (46-116); ANION GAP 12 (8-16); ASPARTATE AMINO TRANSFERASE 14 U/L (10-37); BILIRUBIN,TOTAL 0.2 MG/DL (0.1-1.0); BLOOD UREA NITROGEN 29 MG/DL (7-18); BUN/CREATININE RATIO 24.4 (6.6-38.0); CALCIUM 8.9 MG/DL (8.5-10.1); CHLORIDE 105 MMOL/L (99-107); CREATININE 1.19 MG/DL (0.40-0.90); GLUCOSE 130 MG/DL (70-104); POTASSIUM 4.8 MMOL/L (3.5-5.1); SODIUM 142 MMOL/L (135-145); TOTAL CARBON DIOXIDE 24.6 MMOL/L (24-32); TOTAL PROTEIN 6.5 G/DL (6.4-8.2); eGFR 44 ML/MIN
[2019-11-27 06:14] LABS: MAGNESIUM 1.7 MG/DL (1.5-2.4)
[2019-11-27 06:36] VITALS: BP 127/84
== END 2019-11-27 07:04 | disposition home or self-care (01) ==
LOC: ER 05:18
DX: R07.9 Chest pain, unspecified (principal); F03.90 Unspecified dementia, unspecified severity, without behavioral disturbance, psychotic disturbance, mood disturbance, and anxiety; I48.91 Unspecified atrial fibrillation; I10 Essential (primary) hypertension; K21.9 Gastro-esophageal reflux disease without esophagitis; E11.9 Type 2 diabetes mellitus without complications; Z90.49 Acquired absence of other specified parts of digestive tract; Z90.89 Acquired absence of other organs; Z88.1 Allergy status to other antibiotic agents; Z88.0 Allergy status to penicillin; Z88.2 Allergy status to sulfonamides; Z88.8 Allergy status to other drugs, medicaments and biological substances; Z88.6 Allergy status to analgesic agent; Z79.4 Long term (current) use of insulin; Z79.899 Other long term (current) drug therapy
CPT/HCPCS: 36415; 71045; 80053; 83735; 83880; 84484; 85025; 85610; 85730; 93005; 99285

== ENCOUNTER 2020-02-17 21:38 | Emergency (ER) | payer MEDICARE, BC ==
[~2020-02-17] VITALS: Ht 162.6 cm; Wt 67.7 kg
[~2020-02-17 21:38] MED LIST changes: +METF-900 PO; -METF500T20 PO
--- NOTE | 2020-02-17 22:05 | NUR ---
PT DENIES BUMPING HER HEAD OR HAVING A LOSS IN LOC . PT DENIES TAKING THINNERS AND EMS REPORTS TAHT THE MEDICAL FACILITY DENIES THE PT TAKING THINNERS . EMS REPORTED PT WAS FOUND RESPONSIVE ON THE GROUND AT [facility] . STATED STAFF REPORTED THAT SHE WAS DOWN MAYBE 45 MIN WIHT LOW BACK AND LEFT HIP PAIN .
--- NOTE | 2020-02-17 22:09 | NUR ---
PT TO X RAY
--- NOTE | 2020-02-17 22:20 | NUR ---
pt back from x ray
[2020-02-17 22:21] LABS: BASOPHILS # (AUTO) 0.1 X10'3 (0-0.2); BASOPHILS % (AUTO) 0.9 % (0-1); EOSINOPHILS # (AUTO) 0.7 X10'3 (0-0.9); EOSINOPHILS % (AUTO) 9.8 % (0-6); HEMATOCRIT 30.2 % (35.0-45.0); HEMOGLOBIN 9.7 g/dl (12.0-16.0); LYMPHOCYTES # (AUTO) 1.5 X10'3 (1.1-4.8); LYMPHOCYTES % (AUTO) 20.2 % (21-51); MEAN CORPUSCULAR HGB CONC 32.2 g/dL (33.0-36.5); MEAN CORPUSCULAR VOLUME 90.2 FL (78-98); MEAN PLATELET VOLUME 9.5 FL (7.4-10.4); MONOCYTES # (AUTO) 0.9 X10'3 (0-0.9); MONOCYTES % (AUTO) 11.7 % (2-12); NEUTROPHILS # (AUTO) 4.4 X10'3 (1.8-7.7); NEUTROPHILS % (AUTO) 57.4 % (42-75); PLATELET COUNT 286 X10'3 (140-440); RED BLOOD COUNT 3.35 X10'6 (4.20-5.60); WHITE BLOOD COUNT 7.7 X10'3 (4.5-11.0)
[2020-02-17 22:33] LABS: ALANINE AMINOTRANSFERASE 15 U/L (12-78); ALBUMIN 3.1 G/DL (3.4-5.0); ALBUMIN/GLOBULIN RATIO 0.9 (1.1-1.5); ALKALINE PHOSPHATASE 61 IU/L (46-116); ANION GAP 16 (8-16); ASPARTATE AMINO TRANSFERASE 9 U/L (10-37); BILIRUBIN,TOTAL 0.1 MG/DL (0.1-1.0); BLOOD UREA NITROGEN 31 MG/DL (7-18); CALCIUM 9.1 MG/DL (8.5-10.1); CHLORIDE 105 MMOL/L (99-107); CREATININE 1.41 MG/DL (0.40-0.90); GLUCOSE 164 MG/DL (70-104); POTASSIUM 5.1 MMOL/L (3.5-5.1); SODIUM 141 MMOL/L (135-145); TOTAL PROTEIN 6.7 G/DL (6.4-8.2); eGFR 36 ML/MIN
[2020-02-17 22:40] LABS: CLARITY,URINE CLEAR (Clear); COLOR,URINE YELLOW (Yellow); GLUCOSE, URINE NEGATIVE (Neg); KETONES,URINE 15 mg/dl (Neg); LEUKOCYTE ESTERASE ,URINE SMALL (Neg); NITRITES, URINE POSITIVE (Neg); OCCULT BLOOD,URINE MODERATE (Neg); PROTEIN,URINE NEGATIVE (Neg); UROBILINOGEN,URINE 0.2 E.U/dL (0.2-1.0)
[2020-02-17 22:44] LABS: UA COLLECTION TYPE STRAIGHT CATH
[2020-02-17 22:46] LABS: BACTERIA,URINE 4+ /HPF (Neg); RBC,URINE 0-2 /HPF (0-2); SQUAMOUS EPITHELIAL CELL,UR FEW /LPF (FEW)
[2020-02-17] MEDS ORDERED: NITR100C6 PO (23:04)
[2020-02-17] MEDS ORDERED: nitrofuran/nitrofuran macrocrysal 100 MG capsule PO ONE (23:10)
--- NOTE | 2020-02-18 00:30 | NUR ---
TECH TO CONTACT [facility] [employer] FOR TRANSPORATION FOR THE PATIENT BACK HOME .
--- NOTE | 2020-02-18 00:58 | NUR ---
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
[2020-02-18 01:06] VITALS: BP 122/64
== END 2020-02-18 01:04 | disposition home or self-care (01) ==
LOC: ER 21:39
DX: N39.0 Urinary tract infection, site not specified (principal); F03.90 Unspecified dementia, unspecified severity, without behavioral disturbance, psychotic disturbance, mood disturbance, and anxiety; I48.91 Unspecified atrial fibrillation; I10 Essential (primary) hypertension; K21.9 Gastro-esophageal reflux disease without esophagitis; E11.9 Type 2 diabetes mellitus without complications; Z90.49 Acquired absence of other specified parts of digestive tract; Z98.890 Other specified postprocedural states; Z88.0 Allergy status to penicillin; Z88.2 Allergy status to sulfonamides; Z88.8 Allergy status to other drugs, medicaments and biological substances; Z79.82 Long term (current) use of aspirin; Z79.4 Long term (current) use of insulin; Z79.899 Other long term (current) drug therapy
CPT/HCPCS: 36415; 72100; 73502; 80053; 81001; 85025; 87077; 87088; 87186; 99284

== ENCOUNTER 2020-08-13 13:20 | Emergency (ER) | payer MEDICARE, BC ==
[~2020-08-13] VITALS: Ht 167.6 cm; Wt 59.1 kg
[~2020-08-13 13:20] MED LIST changes: +NITR100C6 PO
--- NOTE | 2020-08-13 14:37 | NUR ---
called [facility] to let them know that pt is ready to discharge, [facility] called for transport
[2020-08-13 15:49] VITALS: BP 147/73
== END 2020-08-13 15:52 | disposition home or self-care (01) ==
LOC: ER 13:20
DX: S00.03XA Contusion of scalp, initial encounter (principal); F03.90 Unspecified dementia, unspecified severity, without behavioral disturbance, psychotic disturbance, mood disturbance, and anxiety; K21.9 Gastro-esophageal reflux disease without esophagitis; I10 Essential (primary) hypertension; E11.9 Type 2 diabetes mellitus without complications; Z88.0 Allergy status to penicillin; Z88.2 Allergy status to sulfonamides; Z88.8 Allergy status to other drugs, medicaments and biological substances; W18.39XA Other fall on same level, initial encounter; Y93.89 Activity, other specified; Y92.89 Other specified places as the place of occurrence of the external cause; Y99.8 Other external cause status; Z90.49 Acquired absence of other specified parts of digestive tract
CPT/HCPCS: 70450; 72125; 99285